=== PATIENT | male | born 1985 | race African-American/Black ===

== ENCOUNTER 2021-10-22 17:51 | Inpatient (IN) | payer OTHER ==
[2021-10-22] MEDS ORDERED: HEPARIN SODIUM 1,000 UN/ML (10ML VL) ONE (18:12)
[2021-10-22] MEDS ORDERED: MIDAZOLAM 2 MG/2 ML VIAL IVP ONE (18:26)
[2021-10-22] MEDS ORDERED: LIDOCAINE 1% INJ 10MG/ML (5 ML VIAL-PF) SQ ONE (18:28)
[2021-10-22] MEDS: VERAPAMIL SYRINGE (5 MG/10 ML) INTRAARTER ONE ×2 (18:29→19:14)
[2021-10-22] MEDS ORDERED: IV FLUID CONTINUATION 1,000 ML IV ONE (18:32)
[2021-10-22] MEDS ORDERED: fentaNYL (PF) 50 MCG/ML 2 ML AMP ONE (18:54)
[2021-10-22] MEDS ORDERED: fentaNYL (PF) 50 MCG/ML 2 ML AMP IVP ONE (18:56)
[2021-10-22] MEDS ORDERED: HEPARIN SODIUM 1,000 UN/ML (10ML VL) IV ONE (18:57)
[2021-10-22] MEDS ORDERED: CLOPIDOGREL 75 MG TAB ONE (18:59)
[2021-10-22] MEDS ORDERED: CLOPIDOGREL 75 MG TAB PO ONE (19:01)
[2021-10-22] MEDS ORDERED: IOPAMIDOL-370 125ML BTL INJ ONE (19:11)
[2021-10-22] MEDS ORDERED: ZOLPIDEM 5 MG TAB PO PRN (19:23)
[2021-10-22] MEDS ORDERED: RX INFO: IV CONTRAST WAS GIVEN 1 EACH MISC MISCELLANE PRN (19:23)
[2021-10-22] MEDS ORDERED: ATROPINE SULFATE 0.1 MG/ML 10ML SYRINGE IV PRN (19:23)
[2021-10-22] MEDS ORDERED: NITROGLYCERIN SL TABS 0.4 MG TAB SUBLINGUAL PRN (19:23)
[2021-10-22] MEDS ORDERED: MAG HYDROX/AL HYDROX/SIMETH 30 ML CUP PO PRN (19:23)
[2021-10-22] MEDS ORDERED: SODIUM CHLORIDE 0.9% 1,000 ML in EMPTY BAG 1 BAG IV SCH (19:30)
--- NOTE | 2021-10-22 19:31 | P.CRDCN ---
History of Present Illness Consult date: 10/22/21 Chief complaint: Chest pain History of present illness: This is a 36-year-old -Swedish gentleman with a past medical history significant for smoking history of cardiac disease presented to the emergency department in [facility] earlier today with chest discomfort and abnormal cardiac enzymes. Initially the patient was seen by his primary care physician earlier today for intermittent episodes of chest discomfort for the last several days. The discomfort was in the middle of the chest and mainly with exertion and better with a resting with no radiation. Because of discomfort has became more often and more intense he decided to see his primary care physician. The blood work was performed and the patient left home. Subsequently the patient was called to go to the emergency department because of abnormal troponin. He underwent other blood work at the emergency department at [facility] and that showed elevated troponin which was trending up. An EKG was performed and showed also about [address] segment elevation and also biphasic T wave in the anterolateral leads. In the light of that an emergent heart catheterization was advised. The patient subsequently was transferred to [facility] cardiac medical laboratory technical officer and subsequently underwent an emergent heart catheterization and that revealed a plaque rupture and thrombus formation involving a very large proximal LAD. He underwent successful stenting of the LAD with a good angiographic results from right radial approach. He was chest pain-free by the end of the procedure. He still have about [address] segment elevation anteriorly. He tolerated the procedure very well. Past Medical History Past Medical History: No Reported History History of Any Multi-Drug Resistant Organisms: None Reported Past Surgical History: No Surgical Hx Reported Past Psychological History: No Psychological Hx Reported Past Alcohol Use History: Occasional Past Drug Use History: None Reported Medications and Allergies Home Medications Medication Instructions Recorded Confirmed Type No Known Home Medications 03/17/15 03/17/15 History Allergies Allergy/AdvReac Type Severity Reaction Status Date / Time No Known Allergies Allergy Verified 03/17/15 02:57 Physical Exam Vitals: Intake and Output 10/22/21 10/22/21 10/22/21 06:59 14:59 22:59 Intake Total 50 Balance 50 Intake: IV 50 Other: Weight 95.254 kg - Constitutional General appearance: no acute distress - Respiratory Respiratory: bilateral: CTA - Cardiovascular Rhythm: regular Heart sounds: normal: S1, S2 Abnormal Heart Sounds: systolic murmur Results Current Medications Generic Name Dose Route Start Last Admin Trade Name Freq PRN Reason Stop Dose Admin Al Hydroxide/Mg Hydroxide 30 ml 10/22/21 19:23 Mag Hydrox/Al Hydrox/Simeth 30 Ml Cup PO Q4HR PRN Heartburn Aspirin 81 mg 10/23/21 09:00 Aspirin 81 Mg PO DAILY [facility] Atorvastatin Calcium 80 mg 10/22/21 21:00 Atorvastatin 80 Mg Tab PO HS [facility] Atropine Sulfate 0.5 mg 10/22/21 19:23 Atropine Sulfate 0.1 Mg/Ml 10ml Syringe IV ONCE PRN Symptomatic Bradycardia Clopidogrel Bisulfate 75 mg 10/23/21 09:00 Clopidogrel 75 Mg Tab PO DAILY [facility] Protocol Sodium Chloride 1,000 ml/ IV 1,000 mls @ 75 mls/hr 10/22/21 19:30 Solution IV 10/23/21 01:31 .[id number] [facility] Metoprolol Tartrate 25 mg 10/22/21 21:00 Metoprolol Tartrate 25 Mg Tab PO BID [facility] Miscellaneous Information 1 each 10/22/21 19:23 Rx Info: Iv Contrast Was Given 1 Each Misc MISCELLANE 10/24/21 19:23 DAILY PRN Per Protocol Nitroglycerin 0.4 mg 10/22/21 19:23 Nitroglycerin Sl Tabs 0.4 Mg Tab SUBLINGUAL Q5M PRN Chest Pain Zolpidem Tartrate 5 mg 10/22/21 19:23 Zolpidem 5 Mg Tab PO HS PRN Insomnia Intake and Output 10/22/21 10/22/21 10/22/21 06:59 14:59 22:59 Intake Total 50 Balance 50 Intake: IV 50 Other: Weight 95.254 kg Patient Weight 10/23/21 06:59 Weight 95.254 kg Assessment and Plan Assessment: Assessment #1 acute coronary syndrome #2 significant history of smoking #3 significant family history of coronary artery disease Plan The patient underwent successful stenting of the proximal LAD Continue dual antiplatelet therapy along with high intensity statin Obtain an echocardiogram to establish LV function Smoking cessation Aggressive cholesterol control Follow-up with the patient
--- NOTE | 2021-10-22 19:37 | P.PCN ---
Date of Procedure: 10/22/21 Operative Findings: CARDIAC CATHETERIZATION AND PERCUTANEOUS CORONARY INTERVENTION PERFORMING PHYSICIAN: Laith Torres MD, [facility] PROCEDURE PERFORMED: 1. Selective right and left coronary angiogram 2. Left heart catheterization 3. Successful stenting of proximal LAD using 4.0 x 18 mm Xience JESSICA which with an excellent angiographic results 4. Aspiration thrombectomy from the proximal left anterior descending artery 5. Intravascular ultrasound of the left anterior descending artery INDICATION: Acute coronary syndrome COMPLICATION: None APPROACH: Right radial artery LEVEL OF SEDATION: Moderate with the sedation time off 48 minutes PROCEDURE DESCRIPTION: After obtaining an informed consent the patient was brought to the cardiac labor relations director. The right radial artery was cannulated using micropuncture technique, the micro-puncture wire passed easily then I placed a 6-Brazilian sheath. I gave the patient 2 mg of verapamil intra-arterial and also I gave the patient a 5000 use of heparin IV. Selective right and left coronary angiogram performed using JR4 and JL 3.5 catheters. After that I did intervene on the LAD. After that I did left heart catheterization. The procedure was completed without any complications SELECTIVE CORONARY ANGIOGRAM: The right coronary artery: Is a large caliber vessel and a dominant vessel. The RCA is angiographically normal. Bifurcates distally into PDA and PLV branches and both appeared to be angiographically normal. Left main: It is angiographically normal. Bifurcates into LCx and LAD The left circumflex: Is a large caliber vessel and nondominant vessel. The proximal LCx is angiographically normal. Gives rises into a large OM branch which appeared to be angiographically normal. The circumflex distally appears to be angiographically normal as well and gives rises into a second OM branch which appears to have mild disease only. The left anterior descending artery: The ostial/proximal LAD has a plaque rupture and thrombus formation and the lesion appeared to be in the range of 70-80%. The mid LAD and distal LAD appears to be angiographically normal. LAD gives rises into a large diagonal branch which seems to be angiographically normal HEMODYNAMICS: The LVEDP was 18 with no significant gradient across aortic valve PCI OF THE LAD: Anticoagulation was initiated and completed using heparin with continuous ACT monitoring throughout the case I did a up-grade my she is from 6-Brazilian into 7-Brazilian shooting 035 wire. After that I did engage the left main using JL 3.57-Brazilian guiding catheter. I did wire the left circumflex using a run-through wire which was a short wire and I did where the LAD using a run-through wire which was a long wire. After that I did intravascular ultrasound of the LAD which showed a diameter around 4 mm. I did aspiration thrombectomy from the LAD and I was unable to aspirate any thrombus. After that I did balloon angioplasty of the LAD using 3.5 x 12 mm balloon which was inflated under 12 darcy for 20 seconds. Subsequently the balloon was exchanged from the LAD wire the left circumflex wire. Then on the LAD wire I placed 40 by 18 mm stent. I did deploy the stent in a kissing technique with the balloon in the left circumflex. The final angiogram showed good angiographic results. I did intravascular ultrasound again of the LAD which showed that the LAD stent appeared to be somewhat not well opposed to the cadena. For that reason I postdilated using 4.5 mm balloon. The final angiogram showed excellent angiographic results and the procedure was completed without any complication CONCLUSION: #1 Plaque rupture and thrombus formation involved the proximal LAD. I did successful stenting of the proximal LAD #2 Mildly elevated left-sided filling pressure POSTPROCEDURE MANAGEMENT: #1 dual antiplatelet therapy using aspirin and Plavix for at least 12 moderate #2 aggressive cholesterol control #3 follow-up with the patient
[2021-10-22 19:38] LABS: Glucose,Whole Blood 77 mg/dL (70-110)
[2021-10-22] MEDS: ATORVASTATIN 80 MG TAB PO SCH (20:38)
[2021-10-22] MEDS: METOPROLOL TARTRATE 25 MG TAB PO SCH (20:38)
[2021-10-22] MEDS ORDERED: hydrALAZINE HCL 20 MG/ML 1 ML VIAL IVP PRN (20:56)
[2021-10-22] MEDS: lisinopriL 5 MG TAB PO SCH (21:51)
[2021-10-23] MEDS: METOPROLOL TARTRATE 25 MG TAB PO SCH ×2 (08:15→20:28)
[2021-10-23] MEDS: ASPIRIN 81 MG PO SCH (08:15)
[2021-10-23] MEDS: CLOPIDOGREL 75 MG TAB PO SCH (08:15)
[2021-10-23] MEDS: lisinopriL 5 MG TAB PO SCH (08:15)
[2021-10-23] MEDS ORDERED: lisinopriL 5 MG TAB PO ONE (08:30)
[2021-10-23 08:36] LABS: HCT 47.2 % (39.0-53.0); HGB 14.9 gm/dL (13.0-17.5); Hypochromasia Slight; MCH 29.2 pg (25.0-35.0); MCHC 31.5 g/dL (31.0-37.0); MCV 92.6 fL (80.0-100.0); Mean Platelet Volume 7.9; Platelet Count 256 k/uL (150-450); RDW 14.5 % (11.5-15.5); WBC 12.1 k/uL (3.8-10.6)
[2021-10-23 08:53] LABS: ALT 26 U/L (4-49); AST 28 U/L (17-59); African American GFR (CKD) >90 (>60 ml/min/1.73 sqM); Albumin 3.7 g/dL (3.5-5.0); Alkaline Phosphatase 82 U/L (38-126); Anion Gap 9 mmol/L; Blood Urea Nitrogen 12 mg/dL (9-20); Calcium 8.8 mg/dL (8.4-10.2); Carbon Dioxide 19 mmol/L (22-30); Chloride 106 mmol/L (98-107); Glucose 152 mg/dL (74-99); Non-African American GFR(CKD) 85 (>60 ml/min/1.73 sqM); Potassium 4.7 mmol/L (3.5-5.1); Sodium 134 mmol/L (137-145); Total Bilirubin 0.6 mg/dL (0.2-1.3); Total Protein 6.3 g/dL (6.3-8.2)
[2021-10-23 14:32] LABS: Chol/HDL Ratio 6.65 Ratio
[2021-10-23 15:14] VITALS: BMI 31.5
[2021-10-23] MEDS: ATORVASTATIN 80 MG TAB PO SCH (20:28)
--- NOTE | 2021-10-23 22:00 | HP ---
HISTORY AND PHYSICAL CHIEF COMPLAINT: Pain in the back of the right shoulder. HISTORY OF PRESENT ILLNESS: This is the first known admission for this 36-year-old male. He is in the office, being seen by the nurse practitioner complaining of a pain in the right shoulder which has been on and off for the last month. He has had no history of trauma. Pain goes down the out side of the arm and he has had some tingling and numbness in the hand. He came in to the office on the day of admission stating that the pain in the shoulder got worse when he walked. He is not taking any medication. His EEG was unremarkable and he was sent to [facility] for troponin. After blood was drawn, he left. The troponin came back quite elevated. He was called back to the hospital for admission and then transferred for cardiac cath. REVIEW OF SYSTEMS: He has had no headaches, cough, hemoptysis, orthopnea, PND, murmurs, rheumatic fever, etc. He does have a history of hypertension. He is not on anything. He has been in senior living recently. He denies abdominal pain, nausea, vomiting, hematemesis, melena, hematochezia, jaundice, hepatitis, cirrhosis, renal failure, nocturia, frequency, urgency, dysuria, urethral discharge, incontinence, diabetes, etc. Past medical history, family history, personal and social histories reveal he is not allergic to any medication. He is not taking any. He does smoke and states that he is a "social" drinker. PHYSICAL EXAMINATION: Blood pressure 192/94 with a pulse 72 and regular, respirations 18 and he is afebrile. In general, he appeared to be well developed, well nourished, no acute distress. Skin color is normal. Skin is warm, dry. Lymph nodes are not enlarged. Head, ears, eyes, nose, mouth and throat are normal. Neck veins not distended. Thyroid not enlarged. Chest is clear. Cardiac exam demonstrated normal sinus rhythm and no murmurs or extra sounds. Abdomen is soft and nontender. Extremities: Normal. Neurologically he is intact. IMPRESSION: He is admitted to the hospital with diagnoses: 1. Acute ST elevation myocardial infarction. 2. Hypertension. PLAN: Cardiology consult and proceed to the lab associate. MMODL / IJN: [id number] /
--- NOTE | 2021-10-23 22:41 | PN ---
PROGRESS NOTE CHIEF COMPLAINT: Acute SD. HISTORY OF PRESENT ILLNESS: This gentleman is feeling fairly well today. He is not having any chest pain, shortness of breath, palpitations, nausea, etc. PHYSICAL EXAMINATION: Blood pressure is 149/100 with a pulse of 83, respirations of 15 and he is afebrile. In general he appeared to be in no acute distress. Skin color is normal. Skin is warm, dry. Lymph nodes are not enlarged. Head, ears, eyes, nose, mouth and throat were normal. Neck veins were not distended. Chest is clear. Cardiac exam demonstrated normal sinus rhythm and no murmurs or extra sounds. Abdomen is soft, nontender. Extremities are normal. IMPRESSION: Acute SD. PLAN: 1. No change in program and slowly progress activity and diet and wait for further recommendations from Cardiology. 2. Lipid profile. MMODL / IJN: [id number] /
--- NOTE | 2021-10-24 08:29 | P.PN ---
Subjective Progress Note Date: 10/24/21 Principal diagnosis: acute coronary syndrome The patient is a 36-year-old gentleman with significant history of smoking and hypertension and dyslipidemia who presented to the hospital with chest discomfort and EKG concerning for acute anterior C patient myocardial infarction. He underwent an emergent heart catheterization and was found to have a plaque rupture involving the ostial/proximal LAD where he underwent successful stenting of the LAD with a good angiographic results. He was seen this morning. He continues to be in the ICU. Clinically is doing well and asymptomatic. Hemodynamically stable with excellent blood pressure and heart rate. He is on dual antiplatelet therapy along with high intensity statin. The echo was ordered and in process to be done. From the cardiac standpoint of view, the patient can be transferred out of the ICU for possible discharge in the next 12-24 hours. Objective - Vital Signs Vital signs: Vital Signs Temp 98 F 10/24/21 04:00 Pulse 63 10/24/21 04:00 Resp 13 10/24/21 04:00 BP 116/65 10/24/21 04:00 Pulse Ox 97 10/24/21 07:13 FiO2 21 10/24/21 07:13 Intake & Output 10/23/21 10/24/21 10/24/21 18:59 06:59 18:59 Intake Total 1080 360 Output Total 0 0 Balance 1080 360 Weight 99.7 kg 98.6 kg Intake: Oral 1080 360 Output: Urine 0 0 Other: # Voids 2 2 - Constitutional General appearance: Present: no acute distress - Respiratory Respiratory: bilateral: diminished - Cardiovascular Rhythm: regular - Labs CBC & Chem 7: 10/23/21 07:52 10/23/21 07:52 Labs: Abnormal Lab Results - Last 24 Hours (Table) 10/23/21 10/23/21 10/23/21 Range/Units 07:52 07:52 07:52 WBC 12.1 H (3.8-10.6) k/uL Sodium 134 L (137-145) mmol/L Carbon Dioxide 19 L (22-30) mmol/L Glucose 152 H (74-99) mg/dL Triglycerides 153.00 H (0.00-149.00) mg/dL Cholesterol 222.00 H (0.00-200.00) mg/dL LDL Cholesterol, Calc 158.0 H (0.0-131.0) mg/dL HDL Cholesterol 33.40 L (40.00-60.00) mg/dL Assessment and Plan Assessment: Assessment #1 acute coronary syndrome #2 significant history of smoking #3 significant family history of coronary artery disease Plan The patient underwent successful stenting of the proximal LAD Continue dual antiplatelet therapy along with high intensity statin Obtain an echocardiogram to establish LV function Possible discharge in the next 12-24 hours
[2021-10-24] MEDS ORDERED: lisinopriL 10 MG TAB PO SCH (09:00)
[2021-10-24] MEDS: METOPROLOL TARTRATE 25 MG TAB PO SCH ×2 (09:29→20:38)
[2021-10-24] MEDS: CLOPIDOGREL 75 MG TAB PO SCH (09:29)
[2021-10-24] MEDS: ASPIRIN 81 MG PO SCH (09:29)
--- NOTE | 2021-10-24 10:05 | CA ---
Transthoracic Echo Report Name: Lázaro Smith Age: 36 Gender: M : 1985 Exam Date: 10/23/2021 09:13 Exam Location: [place] [facility] Ht (in): 70 Wt (lb): 210 Ordering Physician: Laith Torres MD ([id number]) Attending/Referring Phys: Snow Maker Nicki Monet RDCS Procedure CPT: Indications: stemi Cardiac Hx: Technical Quality: Good Contrast 1: Total Dose (mL): Contrast 2: Total Dose (mL): MEASUREMENTS (Male / Female) Normal Values 2D ECHO LV Diastolic Diameter PLAX 4.4 cm 4.2 - 5.9 / 3.9 - 5.3 cm LV Systolic Diameter PLAX 3.3 cm IVS Diastolic Thickness 1.2 cm 0.6 - 1.0 / 0.6 - 0.9 cm LVPW Diastolic Thickness 1.2 cm 0.6 - 1.0 / 0.6 - 0.9 cm LV Relative Wall Thickness 0.5 RV Internal Dim ED PLAX 3.1 cm LA Systolic Diameter LX 3.8 cm 3.0 - 4.0 / 2.7 - 3.8 cm LV Diastolic Volume MOD 4C 127.8 cm??? LV Systolic Volume MOD 4C 55.4 cm??? LV Ejection Fraction MOD 4C 56.7 % LV Diastolic Length 4C 8.5 cm LV Systolic Length 4C 7.0 cm LV Diastolic Volume MOD 2C 121.4 cm??? LV Systolic Volume MOD 2C 61.2 cm??? LV Ejection Fraction MOD 2C 49.6 % LV Diastolic Length 2C 9.6 cm LV Systolic Length 2C 8.1 cm LA Volume 59.7 cm??? 18 - 58 / 22 - 52 cm??? M-MODE Aortic Root Diameter MM 3.2 cm MV E Point Septal Separation 0.7 cm AV Cusp Separation MM 2.3 cm DOPPLER AV Peak Velocity 118.9 cm/s AV Peak Gradient 5.7 mmHg MV Area PHT 2.6 cm??? Mitral E Point Velocity 79.9 cm/s Mitral A Point Velocity 42.7 cm/s Mitral E to A Ratio 1.9 MV Deceleration Time 290.3 ms MV E' Velocity 8.7 cm/s Mitral E to MV E' Ratio 9.1 TR Peak Velocity 229.3 cm/s TR Peak Gradient 21.0 mmHg Right Ventricular Systolic Press 26.0 mmHg FINDINGS Left Ventricle Left ventricular ejection fraction is estimated at 50-55 %. Left ventricular cavity size normal. Borderline left ventricular hypertrophy. Anterio basel hypokinesis Right Ventricle Normal right ventricular size and function. Right ventricular systolic pressure within normal limits. Right Atrium Normal right atrial size. Left Atrium Mildly increased left atrial volume. No evidence for an atrial septal defect. Mitral Valve Structurally normal mitral valve. No mitral stenosis, regurgitation or prolapse. Aortic Valve Trileaflet aortic valve. No aortic valve stenosis or regurgitation. Tricuspid Valve Mild tricuspid regurgitation. Pulmonic Valve Structurally normal pulmonic valve. Pericardium Normal pericardium. No pericardial effusion. Aorta Normal size aortic root and proximal ascending aorta. CONCLUSIONS Normal LV size and systolic function Normal RV size and function Previewed by: Dr. Georges Buchanan MD (Electronically Signed) Final Date: 24 October 2021 10:04
[2021-10-24] MEDS: lisinopriL 20 MG TAB PO SCH (16:21)
--- NOTE | 2021-10-24 18:23 | PN ---
PROGRESS NOTE DATE OF SERVICE: 10/24/2021. CHIEF COMPLAINT: Acute ST-segment elevation myocardial infarction. HISTORY OF PRESENT ILLNESS: This gentleman is doing well. Blood pressure is improved. He is having no chest pain, shortness of breath. PHYSICAL EXAMINATION: Chest is clear. Cardiac exam is normal. Abdomen is soft, nontender. IMPRESSION: 1. ST-segment elevation myocardial infarction. 2. Hypertension. PLAN: Increase activity and probably home in the next day or 2. MMODL / IJN: [id number] /
[2021-10-24] MEDS: ATORVASTATIN 80 MG TAB PO SCH (20:38)
[2021-10-25] MEDS: CLOPIDOGREL 75 MG TAB PO SCH (09:28)
[2021-10-25] MEDS: ASPIRIN 81 MG PO SCH (09:28)
[2021-10-25] MEDS: METOPROLOL TARTRATE 25 MG TAB PO SCH (09:29)
[2021-10-25] MEDS: lisinopriL 20 MG TAB PO SCH (09:29)
[2021-10-25 12:13] LABS: Glucose,Whole Blood 118 mg/dL (70-110)
[2021-10-25 12:37] VITALS: BP 137/84; RESP 16; TEMP 98
[2021-10-25 14:08] VITALS: PULSE 63
--- NOTE | 2021-10-25 15:11 | DS ---
DISCHARGE SUMMARY CHIEF COMPLAINT: Chest pain. HISTORY OF PRESENT ILLNESS AND PHYSICAL EXAMINATION: Details of this man's history and physical can be found in the initial workup. COURSE IN THE HOSPITAL: After admission he was placed on bedrest and taken to the cardiac cardiac cath rn, where he had successful stenting of the LAD. Postoperatively he did well. His blood pressure was under good control and it was felt that he could go home on October 25. He will follow up in several days in the office. FINAL DIAGNOSIS: 1. Acute ST-elevation myocardial infarction. 2. Hypertension. OPERATIONS: 1. Cardiac catheterization. 2. Stenting of the LAD. CONSULTATION: Cardiology. He is improved. MMODL / IJN: [id number] /
--- NOTE | 2021-10-25 15:57 | P.PN ---
Subjective Progress Note Date: 10/25/21 This is a 36-year-old gentleman was admitted to the hospital with anterior wall myocardial infarction and had stent placement by Dr. De Oliveira. Patient has been stable. Denies any chest pain or shortness of breath. Tolerating activity. Vital signs are stable. Lungs are clear. Heart is regular. No JVD. Patient could be discharged home. Follow-up with Dr. De Oliveira in one week Objective - Vital Signs Vital signs: Vital Signs Temp 98.0 F 10/25/21 12:00 Pulse 63 10/25/21 14:00 Resp 16 10/25/21 14:00 BP 137/84 10/25/21 12:00 Pulse Ox 100 10/25/21 12:00 FiO2 21 10/24/21 07:13 Intake & Output 10/24/21 10/25/21 10/25/21 18:59 06:59 18:59 Intake Total 400 720 Balance 400 720 Intake: Oral 400 720 Other: Voiding Method Toilet Toilet # Voids 2 2 # Bowel Movements 3 - Exam GENERAL EXAM: Patient is alert and oriented and doesn't appear to be in any acute distress HEENT: Normocephalic. Normal reaction of pupils, equal size, normal range of extraocular motion. No erythema or exudates in the throat. NECK: No masses, no nuchal rigidity. CHEST: No chest wall deformity. LUNGS: Equal air entry with no crackles or wheeze. HEART: S1 and S2 normal with no audible mumurs or gallops. Regular rhythm, femorals equal on both sides.. ABDOMEN: No hepatosplenomegaly, normal bowel sounds, no guarding or rigidity. SKIN: No rashes CENTRAL NERVOUS SYSTEM: No focal deficits. EXTREMITIES: No cyanosis, clubbing or edema. - Labs CBC & Chem 7: 10/23/21 07:52 10/23/21 07:52 Labs: Abnormal Lab Results - Last 24 Hours (Table) 10/25/21 Range/Units 12:11 POC Glucose (mg/dL) 118 H (70-110) mg/dL Assessment and Plan (1) STEMI (ST elevation myocardial infarction) Status: Acute Code(s): I21.3 - ST ELEVATION (STEMI) MYOCARDIAL INFARCTION OF [facility] SITE SNOMED Code(s): 46181093 Plan: Patient is critically stable. Being discharged home. Follow-up with Dr. De Oliveira
== END 2021-10-25 15:08 | disposition home or self-care (01) | DRG 247 ==
LOC: 2SICU 17:53 → 3SCARD 10-24 21:58
PROVIDERS: ADMIT Family Medicine; ATTEND Family Medicine
PROC: 02C03ZZ Extirpation of Matter from Coronary Artery, One Artery, Percutaneous Approach (ICD-10-PCS; principal; 2021-10-22 18:10)
PROC: 4A023N7 Measurement of Cardiac Sampling and Pressure, Left Heart, Percutaneous Approach (ICD-10-PCS; principal; 2021-10-22 18:10)
PROC: B2111ZZ Fluoroscopy of Multiple Coronary Arteries using Low Osmolar Contrast (ICD-10-PCS; principal; 2021-10-22 18:10)
PROC: B240ZZ3 Ultrasonography of Single Coronary Artery, Intravascular (ICD-10-PCS; principal; 2021-10-22 18:10)
PROC: 027034Z Dilation of Coronary Artery, One Artery with Drug-eluting Intraluminal Device, Percutaneous Approach (ICD-10-PCS; principal; 2021-10-22 18:10)
DX: I21.09 ST elevation (STEMI) myocardial infarction involving other coronary artery of anterior wall (principal); I10 Essential (primary) hypertension; E78.5 Hyperlipidemia, unspecified; F17.210 Nicotine dependence, cigarettes, uncomplicated; Z82.49 Family history of ischemic heart disease and other diseases of the circulatory system; Z71.6 Tobacco abuse counseling; Z28.310 Unvaccinated for COVID-19; Z28.21 Immunization not carried out because of patient refusal
CPT/HCPCS: 80053; 80061; 85027; 92978; 93306; 93458